=== PATIENT | male | born 1995 | race Caucasian/White ===

== ENCOUNTER 2017-10-21 11:19 | Outpatient (CLI) | payer OTHER ==
[2017-10-21 12:04] LABS: eGFR (African) > 60; eGFR (Non-African) > 60
== END 2017-10-21 11:20 ==
LOC: LAB 11:19
PROVIDERS: ATTEND Physician Assistant
DX: E66.9 Obesity, unspecified (principal); Z00.00 Encounter for general adult medical examination without abnormal findings; Z13.6 Encounter for screening for cardiovascular disorders
CPT/HCPCS: 36415; 80053; 80061